=== PATIENT | male | born 1935 ===

== ENCOUNTER 2018-12-22 20:13 | Emergency (ER) | payer MEDICARE, MEDICAID ==
[2018-12-22 20:34] VITALS: BP 168/79
[2018-12-22] MEDS ORDERED: Tetan/Diph/Pertus SYR(Tdap)* 0.5 ML SYR(BOOSTRIX) use SYR IM ONE (20:36)
[2018-12-22] MEDS ORDERED: Cephalexin CAP* 500 MG PO ONE (20:40)
--- NOTE | 2018-12-22 20:43 | ED ---
Skin Complaint - HPI Summary HPI Summary: 83 yr old with the complaint of redness and mild swelling over the left deltoid area after getting scratched by chicken wire two days ago. He was pulling on the fence around the vegetable garden. NO animals or manure. The wire scratched his left shoulder when it let loose after being stuck. The patient has redness and mild swelling. No fever or chills. No other complaints. - History of Current Complaint Chief Complaint: [facility] Time Seen by Provider: 12/22/18 20:34 Stated Complaint: LEFT ARM SKIN CONCERN Pain Intensity: 2 - Allergy/Home Medications Allergies/Adverse Reactions: Allergies Allergy/AdvReac Type Severity Reaction Status Date / Time No Known Allergies Allergy Verified 12/22/18 20:23 Home Medications: Home Medications Atenolol TAB* [Tenormin TAB* 25 MG] 12.5 mg PO DAILY 12/22/18 [History Confirmed 12/22/18] Simvastatin [Zocor] 40 mg PO BEDTIME 12/22/18 [History Confirmed 12/22/18] PMH/Surg Hx/FS Hx/Imm Hx - Cancer History Cancer Type, Location and Year: PROSTATE - Surgical History Surgery Procedure, Year, and Place: PROSTATE Infectious Disease History: No Infectious Disease History: Denies: Traveled Outside the [place] in Last 30 Days - Family History Known Family History: Positive: None - Social History Alcohol Use: None Substance Use Type: Reports: None Smoking Status (MU): Never Smoked Tobacco Review of Systems Constitutional: Negative Positive: Other - left deltoid redness, swelling. All Other Systems Reviewed And Are Negative: Yes Physical Exam Triage Information Reviewed: Yes Vital Signs On Initial Exam: Initial Vitals Temp Pulse Resp BP Pulse Ox 98.5 F 73 18 168/79 99 12/22/18 20:26 12/22/18 20:26 12/22/18 20:26 12/22/18 20:26 12/22/18 20:26 Vital Signs Reviewed: Yes Appearance: Positive: Well-Appearing, No Pain Distress Skin: Positive: Other - closed puncture wound left deltoid with 2 cm induration present and cellulitis. No abscess. Eyes: Positive: EOMI ENT: Positive: Normal ENT inspection Neck: Positive: Nontender Respiratory/Lung Sounds: Positive: Clear to Auscultation, Breath Sounds Present Cardiovascular: Positive: RRR. Negative: Murmur Abdomen Description: Negative: Distended Musculoskeletal: Positive: Strength/ROM Intact Neurological: Positive: Sensory/Motor Intact, Alert, Oriented to Person Place, Time, CN Intact II-III Psychiatric: Positive: Normal Diagnostics - Vital Signs Vital Signs Temp Pulse Resp BP Pulse Ox 12/22/18 20:26 98.5 F 73 18 168/79 99 - Laboratory Lab Statement: Any lab studies that have been ordered have been reviewed, and results considered in the medical decision making process. Course/Dx - Course Course Of Treatment: 83 yr old with left shoulder cellulitis. Plan rx with keflex. - Diagnoses Provider Diagnoses: Cellulitis Discharge - Sign-Out/Discharge Documenting (check all that apply): Patient Departure All imaging exams completed and their final reports reviewed: No Studies - Discharge Plan Condition: Good Disposition: HOME Prescriptions: Cephalexin CAP* [Keflex CAP*] 500 mg PO TID #30 cap Patient Education Materials: Puncture Wound (DC), Cellulitis (ED), Hypertension (ED) Referrals: Erica Kimble MD [Primary Care Provider] - 2 Days - Billing Disposition and Condition Condition: GOOD Disposition: Home
== END 2018-12-22 21:01 | disposition home or self-care (01) ==
LOC: UCCORT 20:13
DX: L03.114 Cellulitis of left upper limb (principal)
CPT/HCPCS: 90471; 90715; 99212; A9270-GY; G0463